=== PATIENT | male | born 1955 | race Caucasian/White ===

== ENCOUNTER 2019-06-19 09:13 | Emergency (ER) | payer BC ==
--- OUTSIDE RECORDS SUMMARY | 2019-06-19 09:15 | XMS REPORT | Summary of Care ---
:1955 Author Encounter Chava_maetus(MILI) [id number] Date(s): 05/10/14 - 05/10/14 [facility] Outpatient Imaging [place] [address] Discharge Disposition: Home Physician Attending: Minnie Ramirez MD Reason for Visit 272.2 - MIXED HYPERLIPI Problem List No data available for this section Allergies, Adverse Reactions, Alerts No data available for this section Medications No data available for this section Medications Administered During Your Visit No data available for this section Immunizations No data available for this section
--- OUTSIDE RECORDS SUMMARY | 2019-06-19 09:15 | XMS REPORT | Continuity of Care Document ---
:1955 Author Organization [facility] Care Team Providers Name Role Phone [facility] Unavailable Unavailable Problems Problem Status Onset Classification Date Comments Source Date Reported Hypotension, 11/06/19 05/24/2019 [facility] unspecified 19 [place] R49.0, F17.210, Active 07/21/20 [facility] R05LOW DOSE 15 CT AND TR 401.1=BENIGN Active 05/10/20 [facility] ESSENTIAL 14 HTN/250.00=BRIT TL RT CALF Active 03/10/20 [facility] DX:MUSCLE TEAR 12 DVT Active 03/10/20 [facility] 12 Fatty (change 05/24/2019 [facility] of) liver, not [place] elsewhere classified Hepatomegaly, 05/24/2019 [facility] not elsewhere [place] classified Medications No Data Provided for This Section Allergies, Adverse Reactions, Alerts Substance Category Reaction Severity Reaction Status Date Comments Source type Reported No Known Assertion Drug [facility] Medication allergy [place] Allergies Immunizations No Data Provided for This Section Results No Data Provided for This Section Pathology Reports No Data Provided for This Section Diagnostic Reports Report Value Date Source CT Low Dose Lung CT Low Dose Lung Screening 06/12/2019 [facility] [place] Screening EXAM: 24 month followup. AGE: 63 years /o Male CLINICAL INDICATION: F17.210 - LUNG SCREENING, SMOKER COMPARISON: CT 11/26/2016. TECHNIQUE: Noncontrast, volumetric low-dose CT Chest. Reformatted Slice thickness: 2.[address] imaging performed at this location utilizes radiation dose optimization techniques which include one or more of the following: -Automated exposure control -Adjustment of the mA and/or kV according to patient size -Use of iterative reconstruction technique CT Radiation Dose DLP 87.57 mGy-cm rYx=287 mA=80; CT Dlvol=2.72 mGy; DLP=87.57 mGy-cm FINDINGS: LUNG NODULES: Detail below:. 1. Left lung, 2 mm solid-- unchanged; slice 16 LUNG PARENCHYMA: Linear scar or atelectasis in the left upper lobe. There are couple calcified granulomas in the lungs. AORTA: Within normal limits. Mild atherosclerotic calcifications. HEART / PERICARDIUM: Within normal limits CORONARY Ca++ / ATHEROSCLEROSIS: Mild atherosclerosis. ADENOPATHY: Within normal limits. BASE OF NECK: No significant findings. UPPER ABDOMEN: No significant findings. OTHER INCIDENTAL FINDINGS: No significant findings. LUNG-RADS CATEGORY AND IMPRESSION: Lung-Rads Category: Category 2: Negative, benign findings with no evidence of malignancy. Suggest next LDCT in 12 months if age still less than 77 years. Category S -- Other significant or potentially significant findings: None. No S modifier. Category C -- Personal history of lung cancer: No personal history of lung cancer. Thank you for choosing the [facility] Lung Screening Program. SL: [id number] Abdomen complete US PROCEDURE: ABDOMINAL ULTRASOUND 11/03/2018 [facility] INDICATION: - I95.9 Hypotension, unspecified,. COMPARISON: None. FINDINGS: LIVER: Evidence of diffuse hepatic steatosis with hepatomegaly. The liver measures 16.7 cm in the sagittal plane. Doppler demonstrates a normal monophasic hepatopedal waveform within the main portal vein. GALLBLADDER: No gallstones, sludge, pericholecystic fluid or wall thickening. Reportedly negative sonographic Shields's. BILE DUCTS: No significant intrahepatic or extrahepatic biliary ductal dilation is apparent. The CBD measures 4 mm. PANCREAS: Visibility of the pancreas is limited. SPLEEN: The spleen is normal. KIDNEYS: Normal size, contour and echogenicity without hydronephrosis. AORTA AND INFERIOR VENA CAVA: Visualized portions of the aorta and IVC appear normal. Additional comments: None. IMPRESSION: 1. Diffuse hepatic steatosis with mild hepatomegaly. 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 The cardiomediastinal silhouette is normal. There is no acute consolidation or pleural fluid collection noted. Healed rib fracture deformities are noted at the right hemithorax. Degenerative change at the acromioclavicular joints bilaterally. IMPRESSION: No acute cardiopulmonary process and no significant interval change from the previous exam. SL: [id number] CT Low Dose Lung CT LOW-DOSE LUNG SCREENING 11/26/2016 [facility] Screening Exam: Baseline Age: 61 years y/o Male Clinical Indication: G02.97, Z87.891 / LUNG SCREENING /CT-DOSE DLP 87.43 COMPARISON: Chest radiograph 05/10/2014 TECHNIQUE: Noncontrast, volumetric low-dose CT Chest. jHq=156 mA=80; CT Dlvol=2.72 mGy FINDINGS: LUNG NODULES: 1. Right lung, 3 mm calcified; slice 87 2. Left lung, 3 mm solid; slice 20 3. Left lung, 4 mm calcified; slice 86 LUNG PARENCHYMA: There are mild emphysematous changes of the lungs. There is mild scarring or linear atelectasis at the lung apices and at the lung bases. AORTA: Within normal limits. HEART / PERICARDIUM: Within normal limits CORONARY Ca++ / ATHEROSCLEROSIS: Mild atherosclerosis. ADENOPATHY: No suspicious lymphadenopathy is seen. BASE OF NECK: No significant findings. UPPER ABDOMEN: No significant findings. OTHER INCIDENTAL FINDINGS: No significant findings. LUNG-RADS CATEGORY AND IMPRESSION: Lung-Rads Category: Category 2: Negative, benign findings with no evidence of malignancy. Suggest next LDCT in 12 months if age still less than 77 years. Category S -- Other findings requiring urgent evaluation: Mild emphysematous changes of lungs. Mild coronary artery calcifications. SL:16 Carotid artery CAROTID ARTERY BILATERAL DUPLEX ULTRASOUND 11/26/2016 [facility] Doppler bilat US INDICATION: Carotid bruit COMPARISON: None DISCUSSION: Grayscale, color Doppler, and spectral waveform analysis of the bilateral extracranial carotid and vertebral arteries was performed. Grading of stenosis is according to consensus panel criteria. RIGHT: Mild plaque is visible at the carotid bulb and internal carotid artery. The peak systolic velocity of the internal carotid artery is 82 cm/s. The ICA/CCA ratio is 0.7. These values correspond with less than 50% stenosis of the internal carotid artery. The vertebral artery demonstrates normal antegrade flow and arterial waveforms. LEFT: Mild plaque is visible at the carotid bulb and internal carotid artery. The peak systolic velocity of the internal carotid artery is 103 cm/s. The ICA/CCA ratio is 0.8. These values correspond with less than 50% stenosis of the internal carotid artery. The vertebral artery demonstrates normal antegrade flow and arterial waveforms. IMPRESSION: 1. Less than 50% of the extracranial right internal carotid artery. 2. Less than 50% of the extracranial left internal carotid artery. 3. The vertebral arteries are patent. SL:16 Consultation Notes No Data Provided for This Section Discharge Summaries No Data Provided for This Section History and Physicals No Data Provided for This Section Vital Signs Vital Sign Value Date Comments Source Weight 75 08/12/2015 [facility] BMI Calculated 26.69 08/12/2015 [facility] Height 167.64 cm 08/12/2015 [facility] BMI Calculated 26.69 05/13/2014 [facility] Height 167.64 cm 05/13/2014 [facility] Weight 75 05/13/2014 [facility] Encounters Location Location Encounter Encounter Reason Attending ADM DC Status Source Details Type Number For Provider Date Date Visit Outpatient [id number] DVT MAXIMO 03/10 Active [facility] Outpt Diag [id number] Minnie 05/10 05/11 [facility] [id number] Minnie 05/13 05/14 [facility] Outpatient [id number] Minnie 08/12 08/13 [facility] Outpt Diag [id number] Minnie 11/26 11/27 [facility] Outpatient Services [facility] Outpt Diag [id number] Maximo 09/12 09/13 [facility] Outpt Diag [id number] Minnie 11/03 11/04 [facility] Outpatient Services [facility] Out[facility] Di[facility] [id number] Minnie 06/12 06/13 [facility] Outpatient Services [facility] [place] [facility] [id number] RT CALF KIRA Active [facility] DX:MUS LAMARRA [place] JOSE t TEAR Procedures No Data Provided for This Section Assessment and Plan No Data Provided for This Section Plan of Care No Data Provided for This Section Social History Social History Date Source No data available for this 06/13/2019 [facility] [place] section No data available for this 08/13/2015 [facility] section Family History No Data Provided for This Section Advance Directives No Data Provided for This Section Functional Status No Data Provided for This Section
--- OUTSIDE RECORDS SUMMARY | 2019-06-19 09:16 | XMS REPORT | Summary of Care ---
:1955 Author Organization [facility] Address [address] [place], [place] [address]- Encounter HQ Zeldantr_mateus(FIN) [id number] Date(s): 08/12/15 - 08/12/15 [facility] [address] [place] [address]- Discharge Disposition: Home Attending Physician: Minnie Ramirez MD Referring Physician: Minnie Ramirez MD Vital Signs Most recent to oldest [Reference Range]: 1 Height 167.64 cm (08/12/15 10:11 AM) Weight 75 kg (08/12/15 10:11 AM) Body Mass Index 26.69 m2 (08/12/15 10:11 AM) Problem List No data available for this section Allergies, Adverse Reactions, Alerts Substance Reaction Severity Status NKDA Active Medications No data available for this section Results No data available for this section Immunizations No data available for this section Procedures No data available for this section Social History No data available for this section Assessment and Plan No data available for this section
--- OUTSIDE RECORDS SUMMARY | 2019-06-19 09:16 | XMS REPORT | Summary of Care ---
:1955 Author Organization [facility] Outpatient Imaging [place] Address [address] [place] [address]- Encounter HQ Encntr_alias(FIN) [id number] Date(s): 06/12/19 - 06/12/19 [facility] Outpatient Imaging [place] [address] 6[address]336- [phone] Discharge Disposition: Home or Self Care Attending Physician: Minnie Ramirez MD Referring Physician: Minnie Ramirez MD Vital Signs No data available for this section Problem List No data available for this section Allergies, Adverse Reactions, Alerts No Known Medication Allergies Medications No data available for this section Results No data available for this section Immunizations No data available for this section Procedures No data available for this section Social History No data available for this section Assessment and Plan No data available for this section
--- OUTSIDE RECORDS SUMMARY | 2019-06-19 09:16 | XMS REPORT | Summary of Care ---
:1955 Author Organization [facility] Outpatient Imaging [place] Address [address] [place] [address]- Encounter HQ Encntr_alias(FIN) [id number] Date(s): 11/03/18 - 11/03/18 [facility] Outpatient Imaging [place] [address] [address]- [phone] Discharge Disposition: Home or Self Care Attending [...]
--- OUTSIDE RECORDS SUMMARY | 2019-06-19 09:16 | XMS REPORT | Summary of Care ---
:1955 Author Organization [facility] Outpatient Imaging [place] Address [address] [place] [address]- Encounter HQ Encntr_alias(FIN) [id number] Date(s): 09/12/17 - 09/12/17 [facility] Outpatient Imaging [address] [address]- [phone] Discharge Disposition: Home or Self Care Attending Physician: Eve Crandall MD Vital Signs No data available for [...]
--- OUTSIDE RECORDS SUMMARY | 2019-06-19 09:16 | XMS REPORT | Summary of Care ---
:1955 Author Organization [facility] Outpatient Imaging [facility] [address] [place] [address]- Encounter HQ Encntr_alias(FIN) [id number] Date(s): 11/03/18 - 11/03/18 [facility] Outpatient Imaging [place] [address] [id number]- [phone] Encounter Diagnosis Hypotension, unspecified (Final) - 11/05/18 Fatty (change of) liver, not elsewhere classified (Final) - Hepatomegaly, not elsewhere classified (Final) - Discharge Disposition: Home or Self Care Attending [...]
--- OUTSIDE RECORDS SUMMARY | 2019-06-19 09:16 | XMS REPORT | Summary of Care ---
:1955 Author Organization [facility] Outpatient Imaging [place] Address [address] [place], [place] [address]- Encounter HQ Encntr_alias(FIN) [id number] Date(s): 11/26/16 - 11/26/16 [facility] Outpatient [address] [id number]- [phone] Discharge Disposition: Home or Self Care Attending Physician: Minnie Ramirez MD Vital Signs No [...]
[2019-06-19] MEDS ORDERED: METHYLPREDNISOLONE 125 MG INJ ONE (09:26)
[2019-06-19] MEDS ORDERED: LEVALBUTEROL 1.25 MG/3 ML NEB ONE (09:27)
[2019-06-19 09:41] LABS: Absolute Lymphocytes (CBC) 1.4 K/uL (0.7-4.9); Basophils % 1.1 % (0-1.3); Hematocrit 41.1 % (39.6-49.0); Lymphocytes % 18.1 % (15.3-44.8); MPV 7.9 fL (7.6-11.3); RBC Red Blood Cell Count 4.19 M/uL (4.33-5.43)
[2019-06-19 10:06] LABS: ALT/SGPT 27 U/L (12-78); AST/SGOT 22 U/L (15-37); Albumin 3.9 g/dL (3.4-5.0); Alkaline Phosphatase 81 U/L (45-117); BUN Blood Urea Nitrogen 15 mg/dL (7-18); Bicarbonate 24 mmol/L (21-32); Bilirubin Direct 0.2 mg/dL (0-0.2); Bilirubin Total 0.5 mg/dL (0.2-1.0); Glucose Level 95 mg/dL (74-106); Lipase 93 U/L (73-393); NT PRO-BNP 75 pg/mL (<125); Potassium 4.4 mmol/L (3.5-5.1); Protein, Total 7.7 g/dL (6.4-8.2); Sodium Level 139 mmol/L (136-145); Troponin (Emerg Dept Use Only) < 0.02 ng/mL (0.0-0.045)
--- NOTE | 2019-06-19 10:53 | RAD REPORT ---
EXAM DESCRIPTION: Sina Single View06/19/2019 10:35 am CLINICAL HISTORY: Chest pain COMPARISON: 2016 FINDINGS: The lungs appear clear of acute infiltrate. The heart is normal size IMPRESSION: No acute abnormalities displayed
--- NOTE | 2019-06-19 12:38 | ER ---
Nurse's Notes [facility] Name: Wilfred Mae Age: 63 yrs Sex: Male : 1955 Arrival Date: 06/19/2019 Time: 09:15 Bed 4 Private MD: Diagnosis: Chest pain, unspecified;Wheezing Presentation: 06/19 09:21 Presenting complaint: Left sided chest pain and SOB x 3 days. Transition of care: hb patient was not received from another setting of care. Onset of symptoms was June 17, 2019. Risk Assessment: Do you want to hurt yourself or someone else? Patient reports no desire to harm self or others. Initial Sepsis Screen: Does the patient meet any 2 criteria? No. Patient's initial sepsis screen is negative. Does the patient have a suspected source of infection? No. Patient's initial sepsis screen is negative. Care prior to arrival: None. 09:21 Method Of Arrival: Ambulatory 09:21 Acuity: VINEET 3 hb Historical: - Allergies: 09:22 No Known Allergies; hb - PMHx: 09:22 Hyperlipidemia; Hypertension; hb - PSHx: 09:22 [place]incoln hip replacement; cervical fusion; esophageal varices; hb - Immunization history:: Adult Immunizations up to date. - Social history:: Smoking status: Patient uses tobacco products, smokes one pack cigarettes per day. - Ebola Screening: : No symptoms or risks identified at this time. - Family history:: not pertinent. - Hospitalizations: : No recent hospitalization is reported. Screenin:22 Abuse screen: Denies threats or abuse. Denies injuries from another. Nutritional hb screening: No deficits noted. Tuberculosis screening: No symptoms or risk factors identified. Fall Risk None identified. Assessment: 09:40 General: Appears in no apparent distress. Behavior is calm, cooperative. Pain: hb Complains of pain in chest Pain does not radiate. Pain currently is 5 out of 10 on a pain scale. Pain began 2-3 days ago. Neuro: Level of Consciousness is awake, alert, obeys commands, Oriented to person, place, time, situation. Cardiovascular: Heart tones S1 S2 present Capillary refill < 3 seconds Patient's skin is warm and dry. Respiratory: Airway is patent Respiratory effort is even, unlabored, Respiratory pattern is regular, symmetrical, Breath sounds are clear bilaterally. GI: No signs and/or symptoms were reported involving the gastrointestinal system. : No signs and/or symptoms were reported regarding the genitourinary system. EENT: No signs and/or symptoms were reported regarding the EENT system. Derm: Skin is intact, is healthy with good turgor. Musculoskeletal: No signs and/or symptoms reported regarding the musculoskeletal system. 11:40 Reassessment: Patient appears in no apparent distress at this time. Patient and/or ph family updated on plan of care and expected duration. Pain level reassessed. Patient is alert, oriented x 3, equal unlabored respirations, skin warm/dry/pink. 12:58 Reassessment: Patient appears in no apparent distress at this time. Patient is alert, mg2 oriented x 3, equal unlabored respirations, skin warm/dry/pink. Vital Signs: 09:22 BP 137 / 75; Pulse 75; Resp 16; Temp 97.8; Pulse Ox 100% on R/A; Weight 78.02 kg; hb Height 5 ft. 5 in. (165.10 cm); Pain 5/10; 10:30 BP 112 / 67; Pulse 78; Resp 18; Pulse Ox 100% on R/A; ph 11:39 BP 116 / 68; Pulse 78; Resp 16; Pulse Ox 99% on R/A; ph 12:58 BP 120 / 78; Pulse 78; Resp 18; Temp 98; Pulse Ox 100% on R/A; Pain 1/10; mg2 09:22 Body Mass Index 28.62 (78.02 kg, 165.10 cm) hb ED Course: 09:15 Patient arrived in ED. aa5 09:17 Darshan Barker MD is Attending Physician. rn 09:20 Clarisse Fink, VANDA is Primary Nurse. hb 09:21 Triage completed. hb 09:22 Arm band placed on. hb 09:22 Patient has correct armband on for positive identification. Placed in gown. Bed in low hb position. Call light in reach. Side rails up X 1. threat monitoring analyst on. Pulse ox on. NIBP on. 09:22 Patient maintains SpO2 saturation greater than 95% on room air. hb 09:32 EKG done, by health tech. reviewed by Darshan Barker MD. at1 09:38 Inserted saline lock: 20 gauge in right antecubital area, using aseptic technique. hb Blood collected. 10:37 XRAY Chest (1 view) In Process Unspecified. EDMS 12:09 EKG done, by health tech. reviewed by Darshan Barker MD. at1 12:57 No provider procedures requiring assistance completed. IV discontinued, intact, mg2 bleeding controlled, No redness/swelling at site. Pressure dressing applied. Administered Medications: 09:33 Drug: SOLU-Medrol 125 mg Route: IVP; Site: right antecubital; hb 10:14 Drug: Xopenex (3) 1.25 mg Route: Inhalation; hb Outcome: 12:37 Discharge ordered by . rn 12:58 Discharged to home ambulatory. mg2 12:58 Condition: stable 12:58 Discharge instructions given to patient, Instructed on discharge instructions, follow up and referral plans. medication usage, Demonstrated understanding of instructions, follow-up care, medications, Prescriptions given X 1. 12:58 Patient left the ED. mg2 Signatures: Dispatcher [employer] EDMS Darshan Barker MD MD rn Calderon, Audri RN RN aa5 Salome Bullard, rn pain management EKG Tat1 Estelita Chinchilla, VANDA RN Clarisse Fink, VANDA RN Alexi Dooley RN RN mg2
--- NOTE | 2019-06-19 12:39 | EDPHYS ---
Physician Documentation [facility] Name: Wilfred Mae Age: 63 yrs Sex: Male : 1955 Arrival Date: 06/19/2019 Time: 09:15 Bed 4 Private MD: ED Physician Darshan Barker HPI: 06/19 09:43 This 63 yrs old Male presents to ER via Ambulatory with complaints of Chest rn Pain. 09:43 The patient or guardian reports chest pain that is located primarily in the substernal rn area. Onset: 3 day(s) ago. The pain does not radiate. Associated signs and symptoms: Pertinent positives: cough, shortness of breath, Pertinent negatives: abdominal pain, diaphoresis, syncope, vomiting. The chest pain is described as sharp. Duration: The patient or guardian reports a single episode, that is still ongoing. Modifying factors: The symptoms are alleviated by nothing. the symptoms are aggravated by nothing. Severity of pain: At its worst the pain was moderate in the emergency department the pain is unchanged. The patient has not experienced similar symptoms in the past. Reports chest pain, began 3 days, ago, stays constant except for when goes to sleep. NO trauma. No hemoptysis. + Smoker. + cough. Reports had negative stress test about 5 years ago. NO abd pain.. Historical: - Allergies: 09:22 No Known Allergies; hb - PMHx: 09:22 Hyperlipidemia; Hypertension; hb - PSHx: 09:22 [place] hip replacement; cervical fusion; esophageal varices; hb - Immunization history:: Adult Immunizations up to date. - Social history:: Smoking status: Patient uses tobacco products, smokes one pack cigarettes per day. - Ebola Screening: : No symptoms or risks identified at this time. - Family history:: not pertinent. - Hospitalizations: : No recent hospitalization is reported. ROS: 09:43 Constitutional: Negative for fever, chills, and weight loss, Eyes: Negative for injury, rn pain, redness, and discharge, Neck: Negative for injury, pain, and swelling, Cardiovascular: Negative for palpitations, and edema, Respiratory: + sob and cough Abdomen/GI: Negative for abdominal pain, nausea, vomiting, diarrhea, and constipation, MS/Extremity: Negative for injury and deformity, Neuro: Negative for headache, weakness, numbness, tingling, and seizure. Exam: 09:43 Constitutional: This is a well developed, well nourished patient who is awake, alert, rn and in no acute distress. Head/Face: Normocephalic, atraumatic. Eyes: Pupils equal round and reactive to light, extra-ocular motions intact. Lids and lashes normal. Conjunctiva and sclera are non-icteric and not injected. Cornea within normal limits. Periorbital areas with no swelling, redness, or edema. ENT: dry MM, no stridor Cardiovascular: Regular rate and rhythm. No pulse deficits. + systolic murmur Respiratory: + bilateral wheezing, no retractions Abdomen/GI: soft, non-tender MS/ Extremity: Pulses equal, no cyanosis. Neurovascular intact. Full, normal range of motion. Equal circumference. Neuro: Awake and alert, GCS 15, oriented to person, place, time, and situation. Vital Signs: 09:22 BP 137 / 75; Pulse 75; Resp 16; Temp 97.8; Pulse Ox 100% on R/A; Weight 78.02 kg; hb Height 5 ft. 5 in. (165.10 cm); Pain 5/10; 10:30 BP 112 / 67; Pulse 78; Resp 18; Pulse Ox 100% on R/A; ph 11:39 BP 116 / 68; Pulse 78; Resp 16; Pulse Ox 99% on R/A; ph 12:58 BP 120 / 78; Pulse 78; Resp 18; Temp 98; Pulse Ox 100% on R/A; Pain 1/10; mg2 09:22 Body Mass Index 28.62 (78.02 kg, 165.10 cm) hb MDM: 09:17 Patient medically screened. rn 12:35 Differential diagnosis: acute pericarditis, chest wall pain, costochondritis, rn esophagitis, gastritis, gastroesophageal reflux disease (GERD), pericarditis, pleurisy, pneumonia, pneumothorax. Data reviewed: vital signs, nurses notes, lab test result(s), EKG, radiologic studies, plain films, and as a result, I will discharge patient. Counseling: I had a detailed discussion with the patient and/or guardian regarding: the historical points, exam findings, and any diagnostic results supporting the discharge/admit diagnosis, lab results, radiology results, the need for outpatient follow up, to return to the emergency department if symptoms worsen or persist or if there are any questions or concerns that arise at home. Response to treatment: the patient's symptoms have markedly improved after treatment, and as a result, I will discharge patient. Special discussion: Based on the patient's history, exam, and Dx evaluation, there is no indication for emergent intervention or inpatient Tx. It is understood by the patient/guardian that if the Sx's persist or worsen they need to return immediately for re-evaluation. I discussed with the patient/guardian in detail that at this point there is no indication for admission to the hospital. It is understood, however, that if the symptoms persist or worsen the patient needs to return immediately for re-evaluation. ED course: Trop neg x 2, ecg without ischemia, improved breathing after breathing treatments, states has had inhaler before, will dc home with inhaler, patient requests to be released to work without restrictions, return precautions given and understood.. 06/19 09:24 Order name: Basic Metabolic Panel; Complete Time: 10:06/19 09:24 Order name: CBC with Diff; Complete Time: 06/19 09:24 Order name: LFT's; Complete Time: 06/19 09:24 Order name: NT PRO-BNP; Complete Time: 06/19 09:24 Order name: Troponin (emerg Dept Use Only); Complete Time: :06/19 09:24 Order name: Lipase; Complete Time: 06/19 09:24 Order name: XRAY Chest (1 view); Complete Time: 11:06/19 09:24 Order name: EKG; Complete Time: 06/19 09:24 Order name: Cardiac monitoring; Complete Time: 06/19 09:24 Order name: EKG - Nurse/Tech; Complete Time: 06/19 11:52 Order name: Troponin (emerg Dept Use Only); Complete Time: 12:06/19 11:52 Order name: EKG; Complete Time: 53 06/19 09:24 Order name: IV Saline Lock; Complete Time: :06/19 09:24 Order name: Labs collected and sent; Complete Time: 06/19 09:24 Order name: O2 Per Protocol; Complete Time: rn 06/19 09:24 Order name: O2 Sat Monitoring; Complete Time: rn 06/19 11:52 Order name: EKG - Nurse/Tech; Complete Time: :33 rn Administered Medications: Drug: SOLU-Medrol 125 mg Route: IVP; Site: right antecubital; hb 10:14 Drug: Xopenex (3) 1.25 mg Route: Inhalation; hb Disposition: 06/19/19 12:37 Discharged to Home. Impression: Chest pain, unspecified, Wheezing. - Condition is Stable. - Discharge Instructions: Nonspecific Chest Pain, Pleurisy. - Prescriptions for Albuterol Sulfate 90 mcg/actuation - inhale 1-2 puff by INHALATION route every 4-6 hours; 1 Inhaler. - Work release form, Medication Reconciliation Form, Thank You Letter, Antibiotic Education, Prescription Opioid Use form. - Follow up: Private Physician; When: As needed; Reason: Recheck today's complaints, Re-evaluation by your physician. - Problem is new. - Symptoms have improved. Signatures: Dispatcher [employer] EDMS Darshan Barker MD MD rn Baxter, Heather, RN RN Alexi Dooley RN RN mg2 Corrections: (The following items were deleted from the chart) 12:58 12:37 06/19/2019 12:37 Discharged to Home. Impression: Chest pain, unspecified; mg2 Wheezing. Condition is Stable. Forms are Medication Reconciliation Form, Thank You Letter, Antibiotic Education, Prescription Opioid Use. Follow up: Private Physician; When: As needed; Reason: Recheck today's complaints, Re-evaluation by your physician. Problem is new. Symptoms have improved. rn
[2019-06-19 13:17] VITALS: BP 120/78; TEMP 98; O2SAT 100
--- NOTE | 2019-06-19 20:19 | EKG ---
Test Date: 2019-06-19 Test Time: 12:07:54 Dedicated Owner Operator: CAROLYN MEASUREMENT RESULTS: Intervals: Rate: 75 MN: 168 QRSD: 100 QT: 388 QTc: 433 [place]: P: 50 MN: 168 QRS: 9 T: 101 INTERPRETIVE STATEMENTS: Normal sinus rhythm Nonspecific T wave abnormality Abnormal ECG Compared to ECG 06/19/2019 09:23:52 No significant changes Electronically Signed On 06-19-19 20:18:21 CDT by Javon Marshall
--- NOTE | 2019-06-19 20:21 | EKG ---
Test Date: 2019-06-19 Test Time: 09:23:52 Flaking Roll Operator: CAROLYN MEASUREMENT RESULTS: Intervals: Rate: 74 WI: 168 QRSD: 96 QT: 400 QTc: 444 [place]: P: 59 WI: 168 QRS: 20 T: 66 INTERPRETIVE STATEMENTS: Normal sinus rhythm Nonspecific T wave abnormality Abnormal ECG Compared to ECG 10/16/2016 16:42:16 T-wave abnormality now present ST (T wave) deviation no longer present Electronically Signed On 06-19-19 20:18:47 CDT by Javon Marshall
== END 2019-06-19 12:58 | disposition home or self-care (01) ==
LOC: ER 09:13
DX: R06.2 Wheezing (principal); I10 Essential (primary) hypertension; F17.210 Nicotine dependence, cigarettes, uncomplicated; Z96.643 Presence of artificial hip joint, bilateral
CPT/HCPCS: 93005 ×2; 85025; 80048; 36415; 80076; 84484 ×2; 83690; 83880; 71045; 96374; 99285; J2930

== ENCOUNTER 2019-07-19 12:07 | Emergency (ER) | payer BC ==
[2019-07-19] MEDS ORDERED: PANTOPRAZOLE 40 MG INJ ONE (12:55)
[2019-07-19 12:57] LABS: Absolute Lymphocytes (CBC) 1.2 K/uL (0.7-4.9); Hematocrit 38.4 % (39.6-49.0); Lymphocytes % 23.9 % (15.3-44.8); MPV 7.7 fL (7.6-11.3); RBC Red Blood Cell Count 3.88 M/uL (4.33-5.43)
[2019-07-19 13:07] LABS: Protime INR 1.03
[2019-07-19 13:17] LABS: ALT/SGPT 22 U/L (12-78); AST/SGOT 15 U/L (15-37); Albumin 3.4 g/dL (3.4-5.0); Alkaline Phosphatase 82 U/L (45-117); BUN Blood Urea Nitrogen 9 mg/dL (7-18); Bicarbonate 27 mmol/L (21-32); Bilirubin Direct < 0.1 mg/dL (0-0.2); Bilirubin Total 0.4 mg/dL (0.2-1.0); Glucose Level 134 mg/dL (74-106); Lipase 86 U/L (73-393); Magnesium 1.9 mg/dL (1.8-2.4); NT PRO-BNP 572 pg/mL (<125); Potassium 3.6 mmol/L (3.5-5.1); Protein, Total 6.6 g/dL (6.4-8.2); Sodium Level 141 mmol/L (136-145); Troponin (Emerg Dept Use Only) < 0.02 ng/mL (0.0-0.045)
--- NOTE | 2019-07-19 14:17 | RAD REPORT ---
EXAM DESCRIPTION: CT - Abdomen Pelvis W Contrast - 07/19/2019 2:07 pm CLINICAL HISTORY: GI Bleed;Abd pain COMPARISON: None. TECHNIQUE: Biphasic, helical CT imaging of the abdomen and pelvis was performed following 100 ml non -ionic IV contrast. Oral contrast was given. All CT scans are performed using dose optimization technique as appropriate and may include automated exposure control or mA/KV adjustment according to patient size. FINDINGS: No suspicious findings in the lung bases. The liver, spleen, and pancreas show no suspicious findings. Liver attenuation indicates mild fatty i nfiltration. Gallbladder and biliary tree are also without suspicious finding. Symmetric renal function is seen with no hydronephrosis or suspicious renal mass. No pyelonephritis o r acute parenchymal process. No bladder abnormalities. No adrenal abnormalities. Pelvic floor assessm ent is limited due to the intense spray artifact from bilateral hip prostheses. No dilated bowel loops or bowel wall thickening. Appendix is not clearly defined. No suspicion for ap pendicitis. No free air, free fluid or inflammatory stranding. No hernia, mass or bulky lymphadenopa thy. No acute bone findings seen. Disc and bone degenerative changes are present. The initial image of the examination shows a posterolateral left ninth rib fracture. Callus formation is evident indicating s ubacute to chronic age. Ribcage is only partially imaged. IMPRESSION: Contrast enhanced CT abdomen and pelvis imaging shows no significant or emergent finding . And minimal or mild small bowel enteritis would be possible. Fatty infiltration of the liver, mild in degree. Posterolateral left ninth rib fracture is seen on the initial image of this study. There is callus fo rmation indicating subacute to remote age.
--- NOTE | 2019-07-19 14:19 | RAD REPORT ---
EXAM DESCRIPTION: RAD - Chest Single View - 07/19/2019 1:34 pm CLINICAL HISTORY: Left-sided abdominal pain and lower left chest pain COMPARISON: June 19 TECHNIQUE: AP portable chest image was obtained 1326 hour . FINDINGS: No focal lung parenchymal process. Interstitial pattern is prominent but not clearly diffe rent. Trachea is midline. Heart and vasculature are normal. No measurable pleural effusion and no pne umothorax. No acute bony abnormality seen. No acute aortic findings suspected. IMPRESSION: No acute cardiopulmonary process. No significant change from comparison.
[2019-07-19] MEDS ORDERED: CIPROFLOXACIN HCL 500 MG TAB ONE (15:14)
[2019-07-19] MEDS ORDERED: metroNIDAZOLE 500 MG TABLET ONE (15:14)
--- NOTE | 2019-07-19 15:14 | ER ---
Nurse's Notes [facility] Name: Wilfred Mae Age: 63 yrs Sex: Male : 1955 Arrival Date: 07/19/2019 Time: 12:10 Bed 16 Private MD: Diagnosis: Abdominal and pelvic pain;Enteritis;Rectal Bleeding Presentation: 07/19 12:16 Presenting complaint: Patient states: Pain under left rib cage for four days, pain in la1 back as well. feels swollen, Denies N/V/D or fevers. Transition of care: patient was not received from another setting of care. Onset of symptoms was July 19, 2019. Risk Assessment: Do you want to hurt yourself or someone else? Patient reports no desire to harm self or others. Initial Sepsis Screen: Does the patient meet any 2 criteria? No. Patient's initial sepsis screen is negative. Does the patient have a suspected source of infection? No. Patient's initial sepsis screen is negative. Care prior to arrival: None. 12:16 Method Of Arrival: Ambulatory la1 12:16 Acuity: VINEET 3 la1 Historical: - Allergies: 12:16 No Known Allergies; la1 - PMHx: 12:16 Hyperlipidemia; Hypertension; la1 - Immunization history:: Adult Immunizations up to date. - Social history:: Smoking status: Patient uses tobacco products, smokes one pack cigarettes per day. - Ebola Screening: : No symptoms or risks identified at this time. Screenin:22 Abuse screen: Denies threats or abuse. Denies injuries from another. Nutritional jl7 screening: No deficits noted. Tuberculosis screening: No symptoms or risk factors identified. Fall Risk IV access (20 points). Total [place] Fall Scale indicates No Risk (0-24 pts). Assessment: 12:30 General: Appears in no apparent distress. uncomfortable, Behavior is calm, cooperative, jl7 appropriate for age. Pain: Complains of pain in left upper quadrant and anterior aspect of left lateral abdomen and left mid back Pain currently is 8 out of 10 on a pain scale. Quality of pain is described as pressure, tender, Pain began 2-3 days ago. Is continuous. Neuro: Level of Consciousness is awake, alert, obeys commands, Oriented to person, place, time, situation. Cardiovascular: Murmur present Patient's skin is warm and dry. Respiratory: Airway is patent Respiratory effort is even, unlabored, Respiratory pattern is regular, symmetrical, Breath sounds are clear bilaterally. GI: Abdomen is round non-distended, Bowel sounds present X 4 quads. Reports bloody stool, Patient currently denies diarrhea, nausea, vomiting. : No signs and/or symptoms were reported regarding the genitourinary system. EENT: No signs and/or symptoms were reported regarding the EENT system. Derm: Skin is pink, warm \T\ dry. Musculoskeletal: No signs and/or symptoms reported regarding the musculoskeletal system. 13:30 Reassessment: Patient appears in no apparent distress at this time. No changes from jl7 previously documented assessment. Patient and/or family updated on plan of care and expected duration. Pain level reassessed. Patient is alert, oriented x 3, equal unlabored respirations, skin warm/dry/pink. 14:30 Reassessment: Patient appears in no apparent distress at this time. No changes from jl7 previously documented assessment. Patient and/or family updated on plan of care and expected duration. Pain level reassessed. Patient is alert, oriented x 3, equal unlabored respirations, skin warm/dry/pink. Vital Signs: 12:15 Pulse 82; Resp 16; Temp 97.3; Pulse Ox 100% on R/A; Weight 74.84 kg; Height 5 ft. 6 in. la1 (167.64 cm); Pain 8/10; 12:17 BP 152 / 72; la1 13:22 BP 155 / 76; Pulse 70; Resp 16 S; Pulse Ox 100% on R/A; jl7 15:00 BP 154 / 75; Pulse 79; Resp 16 S; Pulse Ox 100% on R/A; jl7 12:15 Body Mass Index 26.63 (74.84 kg, 167.64 cm) la1 ED Course: 12:10 Patient arrived in ED. mr 12:16 Arm band placed on left wrist. la1 12:17 Triage completed. la1 12:18 Tra Baires RN is Primary Nurse. jl7 12:19 Leobardo Robbins MD is Attending Physician. kdr 12:30 Patient has correct armband on for positive identification. Placed in gown. Bed in low jl7 position. Call light in reach. Side rails up X 1. supply chain engineer on. Pulse ox on. NIBP on. Warm blanket given. 12:30 Initial lab(s) drawn, by me, sent to lab. EKG done, by ED staff, reviewed by Leobardo Robbins MD. Inserted saline lock: 20 gauge in left antecubital area, using aseptic technique. Blood collected. 12:48 Radiology exam delayed due to lab results not completed at this time. (BUN/Creatinine). kw1 13:34 XRAY Chest (1 view) In Process Unspecified. EDMS 14:07 CT Abd/Pelvis - IV Contrast Only In Process Unspecified. EDMS 15:12 Adama Hall MD is Referral Physician. kdr 15:37 No provider procedures requiring assistance completed. IV discontinued, intact, jl7 bleeding controlled, No redness/swelling at site. Pressure dressing applied. Administered Medications: 13:00 Drug: ProTONIX 40 mg Route: IVP; Site: left antecubital; jl7 14:09 Follow up: Response: No adverse reaction jl7 15:29 Drug: Flagyl 500 mg Route: PO; jl7 15:31 Follow up: Response: Medication administered at discharge. jl7 15:29 Drug: Cipro 500 mg Route: PO; jl7 15:31 Follow up: Response: Medication administered at discharge. jl7 Outcome: 15:13 Discharge ordered by . kdr 15:37 Discharged to home ambulatory. jl7 15:37 Condition: stable 15:37 Discharge instructions given to patient, Instructed on discharge instructions, follow up and referral plans. medication usage, Demonstrated understanding of instructions, follow-up care, medications, Prescriptions given X 4. 15:38 Patient left the ED. jl7 Signatures: Dispatcher [employer] EDMS Leobardo Robbins MD MD [facility] MckeonLakesha Reymundo Nichole, RN RN Tra Quintero RN RN [email or web address] Daniela Oropeza kw1
--- NOTE | 2019-07-19 15:14 | EDPHYS ---
Physician Documentation [facility] Name: Wilfred Mae Age: 63 yrs Sex: Male : 1955 Arrival Date: 07/19/2019 Time: 12:10 Bed 16 Private MD: ED Physician Leobardo Robbins HPI: 07/19 12:42 This 63 yrs old Male presents to ER via Ambulatory with complaints of Abd kdr Pain > 50 y/o. 12:42 The patient presents with abdominal pain in the left upper quadrant, Left lower kdr anterior rib cage pain. More pain with palpation of anterior chest wall than LUQ abdomen. 12:53 Onset: The symptoms/episode began/occurred suddenly, 4 day(s) ago. The symptoms radiate kdr to the left flank, left mid back and anterior aspect of left lateral abdomen. Associated signs and symptoms: Pertinent positives: chest pain, Dark stools intermittent for a few weeks. The symptoms are described as achy, burning, constant, crampy, vague. Modifying factors: The symptoms are alleviated by remaining still, the symptoms are aggravated by coughing, breathing deeply, movement, touching the area, Dark Stools. Severity of pain: At its worst the pain was mild moderate in the emergency department the pain is unchanged. The patient has not experienced similar symptoms in the past. The patient has not recently seen a physician. Had a broken rib in the same area about eight months ago which had since resolved. The pain today is not like what he had with the prior rib fracture.. Historical: - Allergies: 12:16 No Known Allergies; la1 - PMHx: 12:16 Hyperlipidemia; Hypertension; la1 - Immunization history:: Adult Immunizations up to date. - Social history:: Smoking status: Patient uses tobacco products, smokes one pack cigarettes per day. - Ebola Screening: : No symptoms or risks identified at this time. ROS: 12:53 Constitutional: Negative for fever, chills, and weight loss, Eyes: Negative for injury, kdr pain, redness, and discharge, ENT: Negative for injury, pain, and discharge, Neck: Negative for injury, pain, and swelling, Cardiovascular: Negative for chest pain, palpitations, and edema, Respiratory: Negative for shortness of breath, cough, wheezing, and pleuritic chest pain, Back: Negative for injury and pain, : Negative for injury, bleeding, discharge, and swelling, MS/Extremity: Negative for injury and deformity, Skin: Negative for injury, rash, and discoloration, Neuro: Negative for headache, weakness, numbness, tingling, and seizure activity. Psych: Negative for depression, anxiety, suicide ideation, homicidal ideation, and hallucinations, Allergy/Immunology: Negative for hives, rash, and allergies, Endocrine: Negative for neck swelling, polydipsia, polyuria, polyphagia, and marked weight changes, Hematologic/Lymphatic: Negative for swollen nodes, abnormal bleeding, and unusual bruising. 12:53 Abdomen/GI: Positive for abdominal pain, nausea, black/tarry stool, Negative for nausea, constipation, abdominal cramps, abdominal distension, anorexia, dysphagia, hematemesis, rectal pain, bowel incontinence, flatulence, acute changes. Exam: 12:53 Constitutional: This is a well developed, well nourished patient who is awake, alert, kdr and in no acute distress. Head/Face: Normocephalic, atraumatic. Eyes: Pupils equal round and reactive to light, extra-ocular motions intact. Lids and lashes normal. Conjunctiva and sclera are non-icteric and not injected. Cornea within normal limits. Periorbital areas with no swelling, redness, or edema. Neck: Trachea midline, no thyromegaly or masses palpated, and no cervical lymphadenopathy. Supple, full range of motion without nuchal rigidity, or vertebral point tenderness. No Meningismus. Chest/axilla: Normal chest wall appearance and motion. Nontender with no deformity. No lesions are appreciated. Cardiovascular: Regular rate and rhythm with a normal S1 and S2. No gallops, murmurs, or rubs. Normal PMI, no JVD. No pulse deficits. Respiratory: Lungs have equal breath sounds bilaterally, clear to auscultation and percussion. No rales, rhonchi or wheezes noted. No increased work of breathing, no retractions or nasal flaring. Back: No spinal tenderness. No costovertebral tenderness. Full range of motion. Skin: Warm, dry with normal turgor. Normal color with no rashes, no lesions, and no evidence of cellulitis. MS/ Extremity: Pulses equal, no cyanosis. Neurovascular intact. Full, normal range of motion. Neuro: Awake and alert, GCS 15, oriented to person, place, time, and situation. Cranial nerves II-XII grossly intact. Motor strength 5/5 in all extremities. Sensory grossly intact. Cerebellar exam normal. Normal gait. Psych: Awake, alert, with orientation to person, place and time. Behavior, mood, and affect are within normal limits. 12:53 Abdomen/GI: Bowel sounds: active, Palpation: soft, moderate abdominal tenderness, in the left upper quadrant. Vital Signs: 12:15 Pulse 82; Resp 16; Temp 97.3; Pulse Ox 100% on R/A; Weight 74.84 kg; Height 5 ft. 6 in. la1 (167.64 cm); Pain 8/10; 12:17 BP 152 / 72; la1 13:22 BP 155 / 76; Pulse 70; Resp 16 S; Pulse Ox 100% on R/A; jl7 15:00 BP 154 / 75; Pulse 79; Resp 16 S; Pulse Ox 100% on R/A; jl7 12:15 Body Mass Index 26.63 (74.84 kg, 167.64 cm) la1 MDM: 12:53 Data reviewed: vital signs, nurses notes, lab test result(s), radiologic studies. kdr Counseling: I had a detailed discussion with the patient and/or guardian regarding: the historical points, exam findings, and any diagnostic results supporting the discharge/admit diagnosis, the need for further work-up and treatment in the hospital. 15:13 Patient medically screened. kdr 07/19 12:41 Order name: Basic Metabolic Panel; Complete Time: 13:49 kdr 07/19 12:41 Order name: CBC with Diff; Complete Time: 13:49 kdr 07/19 12:41 Order name: LFT's; Complete Time: 13:49 kdr 07/19 12:41 Order name: Magnesium; Complete Time: 13:49 kdr 07/19 12:41 Order name: NT PRO-BNP; Complete Time: 13:49 kdr 07/19 12:41 Order name: PT-INR; Complete Time: 13:49 kdr 07/19 12:41 Order name: Troponin (emerg Dept Use Only); Complete Time: 13:49 kdr 07/19 12:41 Order name: XRAY Chest (1 view); Complete Time: 14:53 kdr 07/19 12:41 Order name: Creatinine for Radiology; Complete Time: 13:49 kdr 07/19 12:41 Order name: Lipase; Complete Time: 13:49 kdr 07/19 12:41 Order name: Type And Screen; Complete Time: 14:53 kdr 07/19 12:41 Order name: CT Abd/Pelvis - IV Contrast Only; Complete Time: 14:53 kdr 07/19 12:41 Order name: EKG; Complete Time: 12:42 kdr 07/19 12:41 Order name: Cardiac monitoring; Complete Time: 12:54 kdr 07/19 12:41 Order name: EKG - Nurse/Tech; Complete Time: 12:53 kdr 07/19 12:41 Order name: IV Saline Lock; Complete Time: 12:53 kdr 07/19 12:41 Order name: Labs collected and sent; Complete Time: 12:53 kdr 07/19 12:41 Order name: O2 Per Protocol; Complete Time: 12:52 kdr 07/19 12:41 Order name: O2 Sat Monitoring; Complete Time: 12:52 kdr Administered Medications: 13:00 Drug: ProTONIX 40 mg Route: IVP; Site: left antecubital; [facility] 14:09 Follow up: Response: No adverse reaction [facility] 15:29 Drug: Flagyl 500 mg Route: PO; [facility] 15:31 Follow up: Response: Medication administered at discharge. [facility] 15:29 Drug: Cipro 500 mg Route: PO; [facility] 15:31 Follow up: Response: Medication administered at discharge. [facility] Disposition: 07/19/19 15:13 Discharged to Home. Impression: Abdominal and pelvic pain, Enteritis, Rectal Bleeding. - Condition is Stable. - Discharge Instructions: Nausea and Vomiting, Adult, [id number], Abdominal Pain, Adult, [id number]. - Prescriptions for Cipro 500 mg Oral Tablet - take 1 tablet by ORAL route every 12 hours for 7 days; 14 tablet. Flagyl 500 mg Oral Tablet - take 1 tablet by ORAL route every 6 hours for 7 days; 28 tablet. Pepcid 20 mg Oral Tablet - take 1 tablet by ORAL route every 12 hours for 5 days; 20 tablet. Zofran 4 mg Oral Tablet - take 1 tablet by ORAL route every 4-6 hours As needed; 12 tablet. - Medication Reconciliation Form, Thank You Letter, Antibiotic Education form. - Follow up: Private Physician; When: 2 - 3 days; Reason: If symptoms return, Further diagnostic work-up, Recheck today's complaints, Continuance of care, Re-evaluation by your physician. Follow up: Adama Hall MD; When: 1 - 2 days; Reason: If symptoms return, Further diagnostic work-up, Recheck today's complaints, Continuance of care, Re-evaluation by your physician. - Problem is an ongoing problem. - Symptoms have improved. Signatures: Dispatcher [employer] EDMS Leobardo Robbins MD MD kdr Attema, Lee, RN RN la1 Tra Baires RN RN jl7 Corrections: (The following items were deleted from the chart) 15:38 15:13 07/19/2019 15:13 Discharged to Home. Impression: Abdominal and pelvic pain; jl7 Enteritis; Rectal Bleeding. Condition is Stable. Forms are Medication Reconciliation Form, Thank You Letter, Antibiotic Education, Prescription Opioid Use. Follow up: Private Physician; When: 2 - 3 days; Reason: If symptoms return, Further diagnostic work-up, Recheck today's complaints, Continuance of care, Re-evaluation by your physician. Follow up: Adama Hall; When: 1 - 2 days; Reason: If symptoms return, Further diagnostic work-up, Recheck today's complaints, Continuance of care, Re-evaluation by your physician. Problem is an ongoing problem. Symptoms have improved. kdr
[2019-07-19 15:52] VITALS: TEMP 97.3; O2SAT 100
[2019-07-19 15:55] VITALS: BP 154/75
--- NOTE | 2019-07-20 10:04 | EKG ---
Test Date: 2019-07-19 Test Time: 13:07:33 Field Project Manager: ISIDRO MEASUREMENT RESULTS: Intervals: Rate: 68 [place]: 174 QRSD: 98 QT: 428 QTc: 455 [place]: P: 63 [place]: 174 QRS: 53 T: 69 INTERPRETIVE STATEMENTS: Sinus rhythm with occasional premature ventricular complexes Nonspecific ST and T wave abnormality Abnormal ECG Compared to ECG 06/19/2019 12:07:54 Ventricular premature complex(es) now present ST (T wave) deviation now present T-wave abnormality no longer present Electronically Signed On 07-20-19 10:02:41 CDT by Ganesh Snyder
== END 2019-07-19 15:38 | disposition home or self-care (01) ==
LOC: ER 12:07
DX: K52.9 Noninfective gastroenteritis and colitis, unspecified (principal); K62.5 Hemorrhage of anus and rectum; F17.210 Nicotine dependence, cigarettes, uncomplicated
CPT/HCPCS: 93005; 85025; 80048; 36415; 86900; 83735; 86850; 85610; 86901; 80076; 84484; 83690; 83880; 74177; 71045; Q9967; C9113; 96374; 99284

== ENCOUNTER 2019-10-21 06:33 | Day surgery (SDC) | payer BC ==
[2019-10-21] MEDS ORDERED: Ringers Lactate 1,000 ML IV ONE (07:22)
[2019-10-21] MEDS: LIDOCAINE 4% TOP SOLUTION ONE ×2 (07:30→07:58)
[2019-10-21] MEDS ORDERED: LIDOCAINE 1% MPF 30 ML VIAL ONE ×2 (07:39→07:48)
[2019-10-21] MEDS ORDERED: GLYCOPYRROLATE 0.2 MG/ML SYR ONE (07:39)
[2019-10-21] MEDS ORDERED: Phenylephrine HCl 10 MG/ML 1 ML VIAL ONE (07:39)
[2019-10-21] MEDS ORDERED: MIDAZOLAM HCL 2 MG/2 ML INJ ONE (07:47)
[2019-10-21] MEDS ORDERED: FENTANYL CITR 100 MCG/2 ML ONE (07:47)
[2019-10-21] MEDS ORDERED: propofoL 200 MG/20 ML VIAL IV ONE (07:48)
--- NOTE | 2019-10-21 08:44 | P.OP ---
Date of Service: 10/21/19 (Diagnostic bronchoscopy) Findings and Operative Technique Patient is 63 years of age admitted with persistent hemoptysis despite antibiotics patient is an active smoker CT scan negative bronchoscopy done to rule out cancer After obtaining informed consent from the patient he was premedicated by anesthesia findings normal upper airway normal vocal cords normal trachea normal sher and no endobronchial lesions visible lump on poor inspection of the right in the left lung means stem bronchi and subsegmental bronchi no bleeding visible no procedures performed patient to be discharged follow up in my office in a couple of weeks
[2019-10-21 10:12] VITALS: BP 135/72; TEMP 97.2; O2SAT 100
== END 2019-10-21 09:30 | disposition home or self-care (01) ==
LOC: OR 06:33
PROVIDERS: ATTEND Internal Medicine Sleep Medicine
PROC: 0BJ08ZZ Inspection of Tracheobronchial Tree, Via Natural or Artificial Opening Endoscopic (ICD-10-PCS; principal; 2019-10-21 08:00)
DX: R04.2 Hemoptysis (principal); J44.9 Chronic obstructive pulmonary disease, unspecified; F17.200 Nicotine dependence, unspecified, uncomplicated
CPT/HCPCS: 31622; J2704; J2370; J2250; J3010; J7120